=== PATIENT | male | born 1970 | race Caucasian/White ===

== ENCOUNTER 2019-06-24 03:11 | Emergency (ER) | payer BC, SELFPAY ==
[2019-06-24 03:15] VITALS: BP 159/105; PULSE 91; RESP 18; TEMP 36.8; O2SAT 100
--- NOTE | 2019-06-24 03:50 | ED.FALL ---
HPI - Fall General Chief Complaint: Fall Stated Complaint: fall Time Seen by Provider: 06/24/19 03:46 Source: patient and family Mode of arrival: EMS Limitations: intoxication History of Present Illness HPI Narrative: 48 yo male who presents via EMS for evaluation of head injury. Patient has been drinking alcohol tonight and he states he fell down 12 stairs. Patient denies LOC. His states security alarm was set off by patient. When the police arrived, patient was found to have head injury so EMS was called. . Patient states he has no complaints. He denies any pain. He denies nausea or vomiting. EMS placed patient in C collar. His states his last tetanus was 6 years ago complaint: fall Onset (ago): unknown Fall from: down stairs (#) (12) Fall witnessed: no Place fall occurred: home Loss of consciousness: unsure Location of injury: head Related Data Allergies Allergy/AdvReac Type Severity Reaction Status Date / Time No Known Allergies Allergy Unverified 09/01/13 12:39 Review of Systems Review of Systems: All systems reviewed & are unremarkable except as noted in HPI and below Constitutional: Constitutional: Denies fever(s) and Denies weakness Musculoskeletal: Musculoskeletal: Denies back pain, Denies myalgias and Denies arthralgias Neurologic: Denies vertigo, Denies dizziness and Denies syncope PMFSH Past Medical History Medical History (Updated 06/24/19 @ 06:35 by Alice Anne MD) Healthy adult Surgical History Surgical History (Updated 06/24/19 @ 06:29 by Alice Anne MD) No pertinent past surgical history Social History Social History (Updated 06/24/19 @ 06:29 by Alice Anne MD) Alcohol intake: current Exam Narrative: Exam Narrative: GENERAL: Well-appearing, well-nourished, and in no acute distress. EYES: PERRLA and EOMI, conjunctiva clear without discharge, nystagmus present EARS: TM's clear bilaterally without erythema or dullness NOSE: Nares clear, no rhinorrhea or epistaxis THROAT:Mucous membranes moist, Oropharynx normal without erythema, exudate, peritonsillar swelling or fluctuance NECK: Supple, without lymphadenopathy or mass RESPIRATORY: No respiratory distress, Airway patent, Respirations non-labored, Clear to auscultation without rales, rhonchi or wheeze HEART: Regular rate and rhythm. No murmur heard. Normal peripheral pulses. ABDOMEN: Soft, nontender, nondistended, normal active bowel sounds. No masses. No rebound or guarding, No organomegaly. EXTREMITIES: No edema, normal strength with full range of motion. SKIN: Warm, dry, normal color without rash NEURO: Alert and oriented x3. CN 2-12 grossly intact. No focal deficits. PSYCH: Normal mood and affect. HENMT: Head: hematoma right occipital and laceration (irregular laceration 4 cm in hematoma) Course Course Emergency Course: Patient presents for evaluation of fall down stairs while intoxicated. I recommended and ordered imaging with CT brain and cervical spine. Patient refused to do testing stating high medical bills. His and mother at bedside. Patient and family understand risk. He was agreeable to laceration repair. His laceration did bleed significantly. I was able to get bleeding under control and place david Vital Signs Vital signs: Vital Signs Temperature 98.2 F 06/24/19 03:15 Pulse Rate 91 06/24/19 03:15 Respiratory Rate 18 06/24/19 03:15 Blood Pressure 159/105 H 06/24/19 03:15 Pulse Oximetry 100 06/24/19 03:15 Temperature 98.2 F 06/24/19 03:15 Pulse Rate 97 06/24/19 06:24 Respiratory Rate 18 06/24/19 06:24 Blood Pressure 139/90 06/24/19 06:24 Pulse Oximetry 98 06/24/19 06:24 Procedures Laceration Laceration 1: Date: 06/24/19 Time: 06:00 Site: scalp Side (If applicable): right Size (cm): 5 Description: irregular and clean Depth: simple, single layer Local Anesth
[2019-06-24] MEDS: TETANUS,DIPHTHERIA,AC PERTUSSIS ADULT 0.5 ML (ADACEL) IM (04:03)
--- NOTE | 2019-06-24 04:08 | PC.NURSE ---
Patient refusing CT scans at this time, stating I'm fine, I don't need those. WAYLON Anne notified.
[2019-06-24 04:37] VITALS: BP 140/99; PULSE 86; RESP 16; O2SAT 99
[2019-06-24 06:24] VITALS: BP 139/90; PULSE 97; RESP 18; O2SAT 98
== END 2019-06-24 06:48 | disposition home or self-care (01) ==
PROVIDERS: Emergency Provider General Practice; PCP Family Medicine
DX: S00.03XA Contusion of scalp, initial encounter (principal); S01.01XA Laceration without foreign body of scalp, initial encounter; W10.9XXA Fall (on) (from) unspecified stairs and steps, initial encounter
CPT/HCPCS: 12002; 90471; 90715; 99282; A9270